=== PATIENT | male | born 2000 | race Asian ===

== ENCOUNTER 2019-10-23 05:11 | Day surgery (SDC) | payer OTHER ==
[2019-10-20 13:03] VITALS: BMI 25.8
[2019-10-23] MEDS ORDERED: PROPOFOL 20 ML ONE ×4 (07:22→13:24)
[2019-10-23] MEDS ORDERED: SUCCINYLCHOLINE CHLORIDE 200 MG/10 ML SYRINGE ONE (07:22)
[2019-10-23] MEDS ORDERED: ROCURONIUM BROMIDE 100 MG/10 ML VIAL ONE (07:23)
[2019-10-23] MEDS ORDERED: MIDAZOLAM HCL 2 MG/2 ML SINGLE DOSE VIAL ONE ×3 (07:23→12:42)
--- NOTE | 2019-10-23 08:09 | HP ---
[facility] - Chief Complaint Chief Complaint: right wrist fx - Past Medical History Allergies/Adverse Reactions: Allergies Allergy/AdvReac Type Severity Reaction Status Date / Time No Known Allergies Allergy Verified 10/20/19 12:56 - Current Medications Current Medications: Home Medications Medication Instructions Recorded Albuterol Sulfate [Proair Hfa] 8.5 gm IH PRN PRN 10/20/19 Amoxicillin - [Amoxicillin 250mg 250 mg PO TID 10/20/19 Capsule -] Cetirizine HCl [Zyrtec -] 10 mg PO PRN PRN 10/20/19 Oxycodone HCl 5 mg PO PRN 10/20/19 Satellite Physical Exam - Physical Examination General Appearance: Well Nourished, Well Developed, Alert & Oriented x3 ENT: Clear Lung: Normal air movement Extremities: Other (right wrist- + swelling, + ttp, decr rom, nvi) Neurological: Intact, Alert, Oriented Satellite Impression/Plan - Impression/Plan Impression: right distal radius fx Operative Procedure: right distal radius orif Date to be Performed: 10/23/19
[2019-10-23] MEDS ORDERED: ROPIVACAINE HCL 0.5% 30ML VIAL ONE (09:41)
[2019-10-23] MEDS ORDERED: LIDOCAINE HCL 2% (20ML MULTI-DOSE VIAL) ONE (12:44)
[2019-10-23] MEDS ORDERED: ceFAZolin SODIUM 1 GM VIAL IVPB ONE (13:32)
--- NOTE | 2019-10-23 14:53 | OP ---
Operative Note - Note: Operative Date: 10/23/19 ([facility]) Pre-Operative Diagnosis: right distal radius fx Operation: right distal radius orif Post-Operative Diagnosis: Same as Pre-op Surgeon: Brent Fried Civil Engineering Assistant: Tonio Pemberton Anesthesia: General, Local Estimated Blood Loss (mls): 0 (tourniquet)
--- NOTE | 2019-10-23 14:56 | OP ---
Operative Note - Note: Operative Date: 10/23/19 Pre-Operative Diagnosis: right distal radius fracture Operation: right distal radius ORIF Implants: Xtone Low Profile DVR plate, 3 x 3.5mm screws 12, 14, 14mm, and 4 distal partially threaded locking screws 18, 22, 22, 24mm Surgeon: Brent Fried [employer] Solution Architect: Tonio Pemberton Anesthesiologist/CNC MACHINE OPERATOR: Enma Solis Anesthesia: General, Local Estimated Blood Loss (mls): 0 Drains, Volume Out (mls): 0 Blood Volume Replaced (mls): 0 Fluid Volume Replaced (mls): 1,000 Operative Report Dictated: Yes
[2019-10-23] MEDS ORDERED: LACTATED RINGERS SOLUTION 1,000 ML IV SCH (15:15)
[2019-10-23 16:30] VITALS: BP 103/65; PULSE 72; TEMP 97.5
--- NOTE | 2019-10-24 11:30 | SPEC ---
DATE OF OPERATION: 10/23/2019 PREOPERATIVE DIAGNOSIS: Right distal radius fracture. POSTOPERATIVE DIAGNOSIS: Right distal radius fracture. PROCEDURE: Right distal radius open reduction and internal fixation. SURGEON: Everardo Johns MD ETL DATABASE DEVELOPER: JOSH Ring ANESTHESIOLOGIST: Enma Mcbride, REF-TRAFFIC CHIEF with Kurtis Canada MD ANESTHESIA: Right infraclavicular block with LMA anesthesia. DRAINS: None. COMPLICATIONS: None. SPECIMEN: None. BLOOD LOSS: None. BLOOD GIVEN: None. FLUID REPLACEMENT: Plasma-Lyte 700 mL. ANTIBIOTICS: Ancef 2 g IV. TOTAL TOURNIQUET TIME: 47 minutes. IMPLANTS USED: Standard hand innovations low-profile DVR plate. We used three 3.5-mm screws of 12, 14, and 14 mm in length. I used all 4 screws of the proximal-distal row which were 18 to 24 mm in length and all partially threaded locking screws. This patient is a 19-year-old male with a preoperative diagnosis of right distal radius fracture. After understanding the potential risks, complications, alternatives, and benefits of surgery versus nonsurgical treatment, the patient elected to undergo this procedure. DESCRIPTION OF PROCEDURE: The entire case was done under 3.8 loupe magnification. Typical FCR approach was marked out with a marking pen and incision made with No. 15 scalpel blade. Subcutaneous hemostasis was achieved with a bipolar cautery. The radial artery was retracted gently in a radial direction and ulnar to this, using a fresh No. 15 scalpel blade, the muscular fascia was incised. Blunt dissection was done with my index finger down to the volar aspect of the distal radius. Weitlaner retractors were placed deep into the wound for visualization. A periosteal elevator was used to do subperiosteal dissection exposing the fracture site. There was a main transverse component to the distal radius fracture but in addition there were several pieces, some extending towards the radial carpal joint and some towards the distal radial ulnar joint. The fracture site was copiously irrigated and washed out. All debris including hematoma and muscle were removed. A provisional reduction was performed and seemed to come together quite nicely. There was a small metaphyseal defect. X-rays were taken in A-P and lateral planes documenting excellent position of the fracture fragments, restoring radial height inclination and volar tilt. Next a standard hand innovations left volar low profile DVR plate was placed on the volar aspect of the distal radius. Two K-wires were placed and x-rays were taken documenting excellent position, length and subchondral position. Next the central 3.5 mm screw was placed in a standard fashion, this was 14 mm in length, and the second-most ulnar proximal row screw was placed. This was a 24 mm partially threaded locking screw. X-rays again were taken documenting excellent position and support of the subchondral bone. The rest of the screws were then put in, first 2 additional purple proximal screws of 12 and 14 mm in length for 6 cortices proximally and then the silver drill bit was used to put in the remaining 6 screws of both the proximal and distal row from 18 mm to 24 mm of length, all partially threaded locking screws. All of the guides were removed and passed off the field. Final x-rays were taken in A-P and lateral planes. I was quite happy with the fracture reduction position, position of the radial carpal joint, distal radial ulnar joint length, height and tilt. EVERARDO JOHNS M.D. [id number]
== END 2019-10-23 16:31 | disposition home or self-care (01) ==
LOC: JASU-SURG 05:11
PROVIDERS: ATTEND Orthopaedic Surgery
PROC: 0PSH04Z Reposition Right Radius with Internal Fixation Device, Open Approach (ICD-10-PCS; principal; 2019-10-23 12:00)
DX: S52.501A Unspecified fracture of the lower end of right radius, initial encounter for closed fracture (principal); X58.XXXA Exposure to other specified factors, initial encounter; Y93.9 Activity, unspecified; Y92.9 Unspecified place or not applicable; Y99.9 Unspecified external cause status
CPT/HCPCS: 25607; C1713; 76000-TC-FY; 94760

== ENCOUNTER 2022-11-29 20:05 | Emergency (ER) | payer OTHER ==
[2022-11-29 20:08] VITALS: BP 117/78; PULSE 100; RESP 18; TEMP 99.2; BMI 25.8
[2022-11-29] MEDS ORDERED: ACETAMINOPHEN 500 MG TABLET (FP) PO ONE (20:22)
== END 2022-11-29 21:23 | disposition home or self-care (01) ==
LOC: JERFT 20:05
DX: S93.401A Sprain of unspecified ligament of right ankle, initial encounter (principal); X50.9XXA Other and unspecified overexertion or strenuous movements or postures, initial encounter
CPT/HCPCS: 73610-TC-RT-FY; 99283-25